=== PATIENT | female | born 1980 | race Caucasian/White ===

== ENCOUNTER 2022-12-11 15:15 | Outpatient (CLI) | payer BC, SELFPAY ==
--- NOTE | 2022-12-11 15:20 | CRLHL7_ITS ---
For Patients: As a result of the Century Cures Act, medical imaging exams and procedure reports are released immediately into your electronic medical record. You may view this report before your referring provider. If you have questions, please contact your health care provider. BILATERAL SCREENING MAMMOGRAM WITH COMPUTER-AIDED DETECTION TECHNIQUE: CC and MLO views were obtained. These mammographic images have been obtained using full-field digital technique. These mammographic images were interpreted with the benefit of computer-aided detection. COMPARISON FILM: 05/03/21. FINDINGS: There are scattered areas of fibroglandular density IMPRESSION: There is no radiographic evidence for malignancy. ASSESSMENT: BI-RADS Category 1: Negative RECOMMENDATION: Routine screening mammogram in 1 year. A lay language report of this examination will be provided to the patient. Maynor Prescott M.D. Diagnostic Radiologist [email or web address] DEVANTE/Dictated by: Maynor Prescott MD @ 12/12/2022 8:36:00 AM (Electronically Signed)
== END 2022-12-11 15:16 | disposition home or self-care (01) ==
LOC: MAMMO 15:16
PROVIDERS: PCP Family Medicine; Visit Provider Obstetrics & Gynecology
DX: Z12.31 Encounter for screening mammogram for malignant neoplasm of breast (principal)
CPT/HCPCS: 77067

== ENCOUNTER 2023-05-05 11:17 | Outpatient (CLI) | payer BC, SELFPAY ==
[2023-05-05 14:25] LABS: Strep A DNA Probe* NOT DETECTED (Not Detectd)
== END 2023-05-05 11:18 | disposition home or self-care (01) ==
LOC: KYNREF 11:18
PROVIDERS: PCP Family Medicine; Visit Provider Nurse Practitioner Family
DX: J02.9 Acute pharyngitis, unspecified (principal)
CPT/HCPCS: 87651

== ENCOUNTER 2023-10-14 14:27 | Outpatient (CLI) | payer BC, SELFPAY ==
--- OUTSIDE RECORDS SUMMARY | 2023-10-14 14:29 | XMS_ITS | Continuity of Care Document ---
Author Organization [facility] Address [address] [place] [address] Phone Care Team Providers Care Trash Collector Supervisor Name Role Phone Onelia French MD Unavailable Unavailable Allergies, Adverse Reactions, Alerts Substance Reaction Status Criticality No Known Allergies Active No Inform ation Medications Medication Instructions Dosage Effective Dates (start - stop) Status Comments CELEXA (unknown strength) Not Available - Active Procedures Procedure Date Office/Outpatient Visit,[facility] 2023 Advance Directives Directive Yes / No Effective Date File Name No Information Encounters Encounter Description Practice Location Reason(s) For Visit Diagnoses Date Provider Providers Copied on Encounter [facility], [address], [place], [place], [id number], [place] tel:[phone] [facility] No Information Gillian Rousseau. [facility] [place], [address] [place] [address] [address], [place], [place], [id number], [place]. tel:[phone] Office/Outpat ient Visit,[facility], [address], [place], [place], [id number], [place] tel:[phone] [facility] - [facility] Other spondylosis with radiculopathy , cervical region Gillian Rousseau. [facility] [place], [address] [place] [address], [place], [place], [id number], . tel:[phone] Referring Provider: [facility] [address] [facility] [address], [place], [address]. tel:[phone] Family History Family Member Type Diagnosis Age At Onset No Information Payers Payer name Insurance type Covered republican ID Pascual cespedes(s) [facility] [id number] Out Of State [id number] Social History Type Description Quantity Date Captured Comments Sex Female Smoking Status No Information Chief Complaint And Reason For Visit No Information Reason For Referral Reason For Referral No Information Plan Of Treatment Date Type Action Status Future Order: Radiology Order Ep idural Steroid Cervical/Thoracic - Nonparticulate (EPINonPartCervThor), Ordered on: Ordered History Of Present Illness Encounter Date Complaint History Of Prese nt Illness No Information Functional Status Date Functional Assessmen t No Information Instructions Date Instruction Additional Infor mation No Information Assessments Type Assessment Date No Information Patient Care Teams Name Effective Dates (start - stop) Status Members No Information
--- NOTE | 2023-10-14 14:30 | CRLHL7_ITS ---
For Patients: As a result of the Century Cures Act, medical imaging exams and procedure reports are released immediately into your electronic medical record. You may view this report before your referring provider. If you have questions, please contact your health care provider. CLINICAL HISTORY: Pelvic and perineal pain TECHNIQUE: 2D christy scale ultrasound. In addition color Doppler and spectral Doppler analysis was performed of the pelvis using a transabdominal and transvaginal approach. FINDINGS: The uterus is absent. The right ovary measures 2.5 x 1.9 x 1.6 cm in size and the left ovary measures 3.3 x 1.7 x 2.1 cm. The ovaries demonstrate normal arterial and venous blood flow on color Doppler and spectral Doppler analysis. There are no suspicious fluid collections within the cul-de-sac. IMPRESSION: Normal ovaries. No evidence of torsion. No excess pelvic free fluid or adnexal mass. Status post hysterectomy. Dictated by Maynor Prescott MD @ 10/15/2023 7:30:25 AM (Electronically Signed)
== END 2023-10-14 14:28 | disposition home or self-care (01) ==
LOC: US 14:28
PROVIDERS: PCP Family Medicine; Visit Provider Obstetrics & Gynecology
DX: R10.2 Pelvic and perineal pain (principal)
CPT/HCPCS: 76830; 76856; 93976

== ENCOUNTER 2024-02-17 14:45 | Outpatient (RCR) | payer BC, SELFPAY | END 2024-06-07 14:55 | disposition home or self-care (01) | PROVIDERS: PCP Family Medicine; Visit Provider Psychiatry & Neurology Neurology | DX: G54.0 Brachial plexus disorders (principal); G24.3 Spasmodic torticollis; M54.2 Cervicalgia; I87.1 Compression of vein; Z51.89 Encounter for other specified aftercare | CPT/HCPCS: 97110; 97140; 97163 ==

== ENCOUNTER 2024-09-21 08:48 | Outpatient (CLI) | payer BC, SELFPAY | END 2024-09-21 08:49 | disposition home or self-care (01) | LOC: NFLDREF 09-24 09:44 | PROVIDERS: PCP Family Medicine; Referring Provider Family Medicine; Visit Provider Family Medicine | DX: Z13.6 Encounter for screening for cardiovascular disorders (principal); Z13.9 Encounter for screening, unspecified | CPT/HCPCS: 80053; 80061 ==

== ENCOUNTER 2025-01-25 19:06 | Emergency (ER) | payer BC, SELFPAY ==
--- OUTSIDE RECORDS SUMMARY | 2024-12-31 11:30 | XMS_ITS | Encounter Summary ---
Author Organization [facility] Address [address] [place] [address] Care Team Providers Care Waste Water Operator Name Role Phone Noah Olguin MD Unavailable [phone] Evie Brooks MD Unavailable [phone] Joseluis Nagel MD Unavailable Evie Brooks MD Primary Care Provider + Noah Olguin MD Unavailable [phone] Reason for Visit * Reason Comments Procedure Here for injections, confirmed with patient * Clinically Administered Medications (Routine) - Authorized Specialty Diagnoses / Procedures Referred By Anderson dong Referred To Contact Neurology Diagnoses Cervical dystonia Procedures HRW INCOBOTULINUMTOXIN A, 1 UNIT 100 units every 3 months Noah Olguin MD [address] [place] [address] Phone: tel: fax: [facility] [address] [address] Phone: tel: fax: Referral ID Status Reason Start Date Expiration Date V isits Requested Visits Authorized [id number] Authorized 12/31/2024 04/06/2025 100 100 Encounter Details Date Type Department Care Team (Latest Contact Info) Description 12/31/2024 11:30 AM CDT Office Visit [facility] Neurology [address] [address] Noah Olguin MD [address] [id number] Cervical dystonia (Primary Dx); Contracture of sternocleidomastoid muscle Social History Tobacco Use Types Packs/Day Years Used Date Smoking Tobacco: Never Assessed PHQ-2 Answer Date Recorded PHQ-2 Score 0 09/24/2024 Adolescent Education Answer Date Record ed Getting School Help Needed Not on file 11/04 Interpersonal Safety Answer Date Record ed Do you feel physically and e motionally safe where you currently live? Yes 09/06/2024 Within the past 12 months, h ave you been hit, slapped, kicked or otherwise physically hurt by someone? No 09/06/2024 Within the past 12 months, h ave you been humiliated or emotionally abused in other ways by your partner or ex-partner? No 09/06/2024 Comments Unknown Sex and Gender Information Value Date Recorded Sex Assigned at Not on file Legal Sex Female 11:47 AM CDT Gender Identity Not on file Sexual Orientation Not on file documented as of this encounter Progress Notes * Noah Olguin MD - 12/31/2024 11:30 AM CDT PROCEDURE NOTE: Intramuscular Incobotulinum Toxin-A (Xeomin) Injection Under Ultrasound Guidance PROCEDURE DATE: 12/31/24 PATIENT NAME: Dorothy Moore DATE OF : 1980 ATTENDING PHYSICIAN: Noah Whalen Cha, MD PRIOR NEUROTOXIN 12-19-23 15 units per sternocleidomastoid muscle on the bilateral side(s) 02-05-24 venogram On the LEFT side 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 03-26-24 30 units per anterior scalene muscle on the LEFT side(s) only (Prior right TOS surgery 06-14-21) 30 units per sternocleidomastoid muscle on the bilateral side(s) divided to two spots of 15 units each. 09-06-24 Right Brachial Plexus Hydrodissection Under Ultrasound Guidance 6-20-25 20 units per anterior scalene muscle on the LEFT side(s) (20 total) 20 units per sternocleidomastoid muscle on the LEFT side (20 total) 10 unit per sternocleidomastoid muscle on the RIGHT side (10 total) 10 units per omohyoid muscle on the RIGHT side(s) (10 total) PREOPERATIVE DIAGNOSIS: 1. Cervical dystonia 2. Contracture of sternocleidomastoid muscle POSTOPERATIVE DIAGNOSIS: same PROCEDURE PERFORMED: Sternocleidomastoid, Anterior Scalene Muscle, Omohyoid Incobotulinum Toxin-A (Xeomin) Injection Under Ultrasound Guidance ULTRASOUND WAS USED. INDICATIONS FOR THE PROCEDURE: Dorothy Moore is a 44 year old female who presents with cervical dystonia. PROCEDURE AND FINDINGS: She was greeted in the clinic. The risk, benefits and alternatives to the procedure were again reviewed with her and informed consent was obtained and the patient agreed to proceed. A time-out was performed. Following review alternatives, benefits and risks, the procedure was carried out under sterile prep with sterile gel. The use of direct sonographic guidance was used to ensure accurate placement of the needle (rather than non-guided injection) and required to minimize the risk of bleeding or injury to nearby neurovascular structures. Images were recorded and stored. A 15-6MHz ultrasound transducer was used to visualize the relevant structures and determine the optimal needle path for the procedure. A 27 gauge 1.5 inch needle was advanced utilizing an [id number] approach, under continuous ultrasound guidance to the sternocleidomastoid, anterior scalene muscle(s), and omohyoid muscles. The tip of the needle was visualized throughout the procedure. The remainder of the single-use vials were discarded. 100 units of incobotulinum toxin was diluted 50 units/mL of preservative free saline. The followingmuscles were injected: 20 units per anterior scalene muscle on the LEFT side(s) (20 total) 20 units per sternocleidomastoid muscle on the LEFT side (20 total) 20 unit per sternocleidomastoid muscle on the RIGHT side (10 total) 20 units per upper and lower belly omohyoid muscle on the LEFT side(s) (10 total)--divided evenly between the bellies 80 total units used. The remainder (20 units) of the single-use vials were discarded. She tolerated the procedure well, was discharged home in stable condition. Follow-up will be in clinic COMPLICATIONS: None COMMENTS: Has had continued arm tingling and numbness. Between the injections, acupuncture and the hydrodissection, she has felt better. But she is feeling worse in the last few weeks. She has not had dizziness or headaches. No nausea. documented in this encounter Nursing Notes * Taniya Norton - 12/31/2024 11:30 AM CDT Chief Complaint Patient presents with Procedure Here for injections, confirmed with patient Taniya Tidwell Lisa documented in this encounter Plan of Treatment Upcoming Encounters Date Type Department Care Team (Late st Contact Info) Description 04/08/2025 12:00 PM STAVE HEWER Office Visit [facility] [address]rd [place] [address] Noah Olguin MD [address] [place] [address] Pending Results Name Type Priority Associated Diagnoses Date /Time POC US GUIDANCE NEEDLE PLACEMENT Imaging Routine Cervical dystonia Contracture of sternocleidomastoid muscle 12/31/2024 12:32 PM CDT Scheduled Orders Name Type Priority Associated Diagnoses Orde r Schedule POC US GUIDANCE NEEDLE PLACEMENT Imaging Routine Cervical dystonia Contracture of sternocleidomastoid muscle Expected: 12/31/2024 (Approximate), Expires: 12/26/2025 US GUIDE FOR NEEDLE PLACEMENT Imaging Routine Cervical dystonia Contracture of sternocleidomastoid muscle Expected: 12/31/2024 (Approximate), Expires: 12/26/2025 [place] CHEMODENERVATION MUSCLE NECK UNILAT Procedures Routine Cervical dystonia Contracture of sternocleidomastoid muscle Expected: 12/31/2024 (Approximate), Expires: 12/26/2025 documented as of this encounter Visit Diagnoses Diagnosis Cervical dystonia- Primary 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 Torticollis, unspecified documented in this encounter Administered Medications Active Administered Medications - up to 3 most recent administrations Medication Order MAR Action Action Date Dose Rate Site incobotulinumtoxin A (XEOMIN) 100 units injection 100 Units 100 Units, Intramuscular, EVERY 3 MONTHS, First dose on Fri12/31/24 at 0000, For 4 dosesIndications:Cervical dystonia,Contracture of sternocleidomastoid muscle $Given by Other 12/31/2024 1:48 PM CDT 100 Units documented in this encounter Care Teams Waste Water Operator Relationship Specialty Start Date End Date Evie Brooks MD [facility] [address] [place] [address] PCP - General Family Medicine 10/17/23 Noah Olguin MD [address] [place] [address] Neurology 10/17/23 Evie Brooks MD [address] [address] Family Medicine 10/17/23 Joseluis Nagel MD [address] [place] [address] 10/17/23 Noah Olguin MD [address] [place] [address] Assigned Neuroscience Provider 11/28/23 documented as of this encounter
--- OUTSIDE RECORDS SUMMARY | 2024-12-31 12:35 | XMS_ITS | Encounter Summary ---
Author Organization [facility] Address [address] [place] [address]. [place] [address] Care Team Providers Care Choirmaster Name Role Phone Noah Olguin MD Unavailable [phone] Evie Brooks MD Unavailable [phone] Joseluis Nagel MD Unavailable Evie Brooks MD Primary Care Provider + Noah Olguin MD Unavailable [phone] Encounter Details Date Type Department Care Team (Latest Contact Info) Description 12/31/2024 12:35 PM CDT Ancillary Procedure [facility] [address] [place] [address] Noah Olguin MD 909 [facility] [address] [place] [address] Cervical dystonia; Contracture of sternocleidomastoid muscle Social History Tobacco [...] on file documented as of this encounter Plan of Treatment Upcoming Encounters Date Type Department Care Team (Late st Contact Info) Description 04/08/2025 12:00 PM COMPUTER INFORMATION SYSTEMS PROFESSOR Office Visit [facility] [address] [place] [phone] Noah Olguin MD [address] [place] [address] Pending Results Name Type Priority Associated Diagnoses Date /Time POC US GUIDANCE NEEDLE PLACEMENT Imaging Routine Cervical dystonia Contracture of sternocleidomastoid muscle 12/31/2024 12:32 PM CDT documented as of this encounter Visit Diagnoses Diagnosis Cervical dystonia 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 [address] [place] [address] Family Medicine 10/17/23 Joseluis Nagel MD [address] [place] [address] 10/17/23 Noah Olguin MD [address] [address] Assigned Neuroscience Provider 11/28/23 documented as of this encounter
--- OUTSIDE RECORDS SUMMARY | 2025-01-25 19:09 | XMS_ITS | Encounter Summary ---
Author Organization [facility] Address [address] [place] [address]. [place] [address] Care Team Providers Care Salesperson Sewing Machines Name Role Phone Noah Olguin MD Unavailable [phone] Evie Brooks MD Unavailable [phone] Joseluis Nagel MD Unavailable Evie Brooks MD Primary Care Provider + Noah Olguin MD Unavailable [phone] Encounter Details Date Type Department Care Team (Latest Contact Info) Description 12/31/2024 Travel Social History Tobacco Use Types Packs/Day Years [...] st Contact Info) Description 04/08/2025 12:00 PM POT WASHER Office Visit [facility] Neurology [facility] [address] [facility] 3rd [place] [phone] Noah Olguin MD [address] [place] [address] documented as of this encounter Visit Diagnoses Not on filedocumented in this encounter Care Teams Salesperson Sewing Machines Relationship Specialty Start Date End Date Evie Brooks MD [facility] [address] [place] [address] PCP - General Family Medicine 10/17/23 Noah Olguin MD [address] [place] [address] Neurology 10/17/23 Evie Brooks MD [facility] [address] [place] [address] Family Medicine 10/17/23 Joseluis Nagel MD [address] [place] [address] 10/17/23 Noah Olguin MD [address] [place] [address] Assigned Neuroscience Provider 11/28/23 documented as of this encounter
--- OUTSIDE RECORDS SUMMARY | 2025-01-25 19:09 | XMS_ITS | Encounter Summary ---
Author Organization [facility] Address [address] [place] [address] Care Team Providers Care Economics Instructor Name Role Phone Noah Olguin MD Unavailable [phone] Evie Brooks MD Unavailable [phone] Joseluis Nagel MD Unavailable Evie Brooks MD Primary Care Provider + Noah Olguin MD Unavailable [phone] Encounter Details Date Type Department Care Team (Late st Contact Info) Description 11/28/2023 MyC Medical Advice [facility] Neurology Clinic [address] [address] Noah Olguin MD [address] [place] [address] 295 [place], [place] [id number] Social History Tobacco Use Types Packs/Day Years Used Date Smoking Tobacco: Never Assessed PHQ-2 Answer Date Recorded PHQ-2 Score 0 11/05/2023 Adolescent Education Answer Date Record ed Getting School Help Needed Not on file 11/04 Comments Unknown Sex and Gender Information Value Date Recorded Sex Assigned at Not on file Legal Sex Female 11:47 AM CDT Gender Identity Not on file Sexual Orientation Not on file documented as of this encounter Plan of Treatment Upcoming Encounters Date Type Department Care Team (Late st Contact Info) Description 04/08/2025 12:00 PM UTILITY MECHANIC SUPERVISOR Office Visit [facility] Neurology [address] [phone] Noah Olguin MD [address] [address] documented as of this encounter Visit Diagnoses Not on filedocumented in this encounter Care Teams Economics Instructor Relationship Specialty Start Date End Date Evie Brooks MD [facility] [address] [place] [address] PCP - General Family Medicine 10/17/23 Noah Olguin MD [address] [place] [address] Neurology 10/17/23 Evie Brooks MD [facility] [address] [place] [address] Family Medicine 10/17/23 Joseluis Nagel MD [address] [place] [address] 10/17/23 Noah Olguin MD [address] [place] [address] Assigned Neuroscience Provider 11/28/23 documented as of this encounter
--- OUTSIDE RECORDS SUMMARY | 2025-01-25 19:09 | XMS_ITS | Encounter Summary ---
Author Organization [facility] Address [address] [place] [address] Care Team Providers Care Director Outcomes Name Role Phone Noah Olguin MD Unavailable [phone] Evie Brooks MD Unavailable [phone] Joseluis Nagel MD Unavailable Evie Brooks MD Primary Care Provider + Noah Olguin MD Unavailable [phone] Encounter Details Date Type Department Care Team (Late st Contact Info) Description 06/15/2024 MyC Medical Advice [facility] Neurology Clinic [address] [address] Noah Olguin MD [address] [place] [address] 295 [place], [place] [phone] Social History Tobacco Use Types Packs/Day Years [...] st Contact Info) Description 04/08/2025 12:00 PM MOBILE HEAVY EQUIPMENT MECHANIC Office Visit [facility] Neurology [address] [phone] Noah Olguin MD [address] [address] documented as of this encounter Visit Diagnoses Not on filedocumented in this encounter Care Teams Director Outcomes Relationship Specialty Start Date End Date Evie Brooks MD [facility] [address] [place] [address] PCP - General Family Medicine 10/17/23 Noah Olguin MD [address] [place] [address] Neurology 10/17/23 Evie Brooks MD [facility] [address] [place] [address] Family Medicine 10/17/23 Joseluis Nagel MD [address] [place] [address] 10/17/23 Noah Olguin MD [address] [place] [address] Assigned Neuroscience Provider 11/28/23 documented as of this encounter
--- OUTSIDE RECORDS SUMMARY | 2025-01-25 19:09 | XMS_ITS | Encounter Summary ---
Author Organization [facility] Address [address] [place] [address] Care Team Providers Care Pest Control Service Sales Agent Name Role Phone Noah Olguin MD Unavailable [phone] Evie Brooks MD Unavailable [phone] Joseluis Nagel MD Unavailable Evie Brooks MD Primary Care Provider + Noah Olguin MD Unavailable [phone] Encounter Details Date Type Department Care Team (Late st Contact Info) Description 08/12/2024 [facility] Medical Advice [facility] Neurology Clinic [address]rd [place] [address] Noah Olguin MD [address] [place] [address] 295 [place] [address] Social History Tobacco Use Types Packs/Day Years [...] on file documented as of this encounter Miscellaneous Notes * Telephone Encounter - Samantha Live RN - 08/18/2024 11:52 AM CDT Spoke to patient about scheduling 08/26 omohyoid injections. Patient is unavailable. She reports that she is having a hydrodissection with Dr. Cooper on 09/06. She is wondering if Dr. Olguin wants to stillproceed with these injections or would want to wait till after procedure is completed? * Telephone Encounter - Samantha Live RN - 08/17/2024 9:35 AM CDT LVM relaying below message. OK to place in hold on 08/26 at 12:30PM for Neurotoxin with Dr. Olguin. documented in this encounter Plan of Treatment Upcoming Encounters Date Type Department Care Team (Late st Contact Info) Description 04/08/2025 12:00 PM PAINTER INTERIOR FINISH Office Visit [facility] Neurology Clinic [address]rd [place] [phone] Noah Olguin MD [address] [place] [address] documented as of this encounter Visit Diagnoses Not on filedocumented in this encounter Care Teams Pest Control Service Sales Agent Relationship Specialty Start Date End Date Evie Brooks MD [address] [address] PCP - General Family Medicine 10/17/23 Noah Olguin MD [address] [place] [address] Neurology 10/17/23 Evie Brooks MD [address] [address] Family Medicine 10/17/23 Joseluis Nagel MD [address] [place] [address] 10/17/23 Noah Olguin MD 909 [facility] [address] [place] [address] Assigned Neuroscience Provider 11/28/23 documented as of this encounter
--- OUTSIDE RECORDS SUMMARY | 2025-01-25 19:09 | XMS_ITS | Encounter Summary ---
Author Organization [facility] Address [address] [place] [address] Care Team Providers Care Clinical Nurse Occupational Medicine Name Role Phone Noah Olguin MD Unavailable [phone] Evie Brooks MD Unavailable [phone] Joseluis Nagel MD Unavailable Evie Brooks MD Primary Care Provider + Noah Olguin MD Unavailable [phone] Encounter Details Date Type Department Care Team (Late st Contact Info) Description 02/16/2024 MyC Medical Advice [facility] Neurology Clinic [address] [address] Noah Olguin MD [address] [place] [address] 295 [place], [place] [phone] Social History Tobacco Use Types Packs/Day Years [...] st Contact Info) Description 04/08/2025 12:00 PM FOLDING MACHINE OPERATOR Office Visit [facility] Neurology [address] [phone] Noah Olguin MD [address] [address] documented as of this encounter Visit Diagnoses Not on filedocumented in this encounter Care Teams Clinical Nurse Occupational Medicine Relationship Specialty Start Date End Date Evie Brooks MD [facility] [address] [place] [address] PCP - General Family Medicine 10/17/23 Noah Olguin MD [address] [place] [address] Neurology 10/17/23 Evie Brooks MD [facility] [address] [place] [address] Family Medicine 10/17/23 Joseluis Nagel MD [address] [place] [address] 10/17/23 Noah Olguin MD [address] [place] [address] Assigned Neuroscience Provider 11/28/23 documented as of this encounter
--- OUTSIDE RECORDS SUMMARY | 2025-01-25 19:09 | XMS_ITS | Encounter Summary ---
Author Organization [facility] Address [address] [place] [address]. [place] [address] Care Team Providers Care Supervisor Natural [employer] Plant Name Role Phone Noah Olguin MD Unavailable [phone] Evie Brooks MD Unavailable [phone] Joseluis Nagel MD Unavailable Evie Brooks MD Primary Care Provider + Noah Olguin MD Unavailable [phone] Encounter Details Date Type Department Care Team (Late st Contact Info) Description 12/20/2024 Telephone [facility] Clinic [address] [place] [address] Noah Olguin MD [address] [place] [address] [address] [place] [address] Social History Tobacco Use Types [...] encounter Miscellaneous Notes * Telephone Encounter - Sirena Ocampo - 12/20/2024 8:08 AM CDT Left Voicemail (2nd Attempt) for the patient to call back and schedule the following: Appointment type: Neurotoxin Provider: Clau Return date: 12/31/24 Specialty phone number: [phone] Additional appointment(s) needed: NA Additonal Notes:per provider-- is pt available to change her appt from 12:30pm to 11:30am(open slot) Sirena Krista Ocampo on 12/20/2024 at 8:08 AM documented in this encounter Plan of Treatment Upcoming Encounters Date Type Department Care Team (Late st Contact Info) Description 04/08/2025 12:00 PM HOOKER OPERATOR Office Visit [facility] Neurology [facility] [address] 3rd [place] [phone] Noah Olguin MD [address] [place] [address] documented as of this encounter Visit Diagnoses Not on filedocumented in this encounter Care Teams Supervisor Natural Gas Plant Relationship Specialty Start Date End Date Evie Brooks MD [address] [address] PCP - General Family Medicine 10/17/23 Noah Olguin MD [address] [place] [address] Neurology 10/17/23 Evie Brooks MD [facility] [address] [place] [address] Family Medicine 10/17/23 Joseluis Nagel MD [address] [place] [address] 10/17/23 Noah Olguin MD 909 [facility] [address] [place] [address] Assigned Neuroscience Provider 11/28/23 documented as of this encounter
--- OUTSIDE RECORDS SUMMARY | 2025-01-25 19:09 | XMS_ITS | Clinical Summary ---
Author Organization [facility] Address [address] [place] [address] Care Team Providers Care Barytes Grinder Name Role Phone Pcp, No Unavailable Unavailable Evie Brooks MD Unavailable [phone] Evie Brooks MD Primary Care Provider + Allergies No known active allergies Medications multivitamin (MVI) tablet Take 1 Tablet by mouth once daily. 0 11/15/2020 Active citalopram (CELEXA) 10 mg tablet Take 30 mg by mouth at bedtime. Active gabapentin (NEURONTIN) 300 mg capsule Take 300 mg by mouth at bedtime. Active furosemide (LASIX) 20 mg tablet Take 20 mg by mouth once daily. Active minocycline (MINOCIN) 100 mg capsule Take 100 mg by mouth every 12 hours. Active Active Problems Problem Noted Date Diagnosed Date Thoracic outlet syndrome 06/14/2021 Anxiety 06/14/2021 Acute postoperative pain 06/14/2021 Cervical Disk Bulging 04/13/2009 Seasonal allergies 02/02/2009 Encounters Date Type Department Care Team Description 12/09/2024 Telephone Identiv [facility] [address] [place] [address] Joseluis Nagel MD Follow Up from Last 3 Months Immunizations Immunization Administration Dates Next Due Hepatitis B (Adult) 02/18/2017 Influenza, IIV3 (Age 6-35 mos) 01/17/2020 Influenza, IIV3 (Age >=3 years) 12/26/2010 Influenza, IIV4 01/11/2019,01/01/2018,01/25/2015 Influenza, IIV4 (=>6mos) MDV 01/08/2017,01/24/20 16 Influenza,LAIV4 Live Intrana celia (Flumist) 01/12/2014 Td, Preservative Free (age > = 7 Years) 10/04/2008 Tdap 11/13/2017, 6,02/02/2009,2008 Family History Medical History Relation Name Comments Other Brother 2 had cystic fibr osis, age 11 with complications, and also an unusual cancer Good Health Father of drownin g Unknown Maternal Grandfather Cancer Maternal Grandmother liver C a Good Health Mother Heart Disease Paternal Grandfather Hyperlipidemia Paternal Grandfather Good Health Paternal Grandmother Anesthesia Problem No Family History Relation Name Status Comments Brother 1 (Age 11) CF Brother 2 Father drowning Maternal Grandfather Maternal Grandmother Mother Paternal Grandfather Paternal Grandmother Social History Tobacco Use Types Packs/Day Years Used Date Smoking Tobacco: Never Smokeless Tobacco: Never Alcohol Use Standard Drinks/Week Comments Yes 0 (1 standard drink = 0.6 oz pur e alcohol) socially; updated 08/02/2024 Social Connections Answer Date Recorded Do you often feel lonely or isolated from those around you? 0 02/02/2024 Financial Resource Strain Answer Date R ecorded Difficulty of Paying Living Expenses 3 05/04/2024 Difficulty of Paying Living Expenses Not on file 05/04/2024 Food Insecurity Answer Date Recorded Do you worry your food will run out before you are able to buy more? 1 02/02/2024 Transportation Needs Answer Date Record ed Does lack of transportation keep you from medica l appointments? 1 02/02/2024 Does lack of transportation keep you from work, meetings or getting things that you need? 1 02/02/2024 Housing Stability Answer Date Recorded What is your housing situation today? 1 02/02/2024 Interpersonal Safety Answer Date Record ed Are you being hit, kicked, p ushed or yelled at (see row info)? No 02/05/2024 Interpersonal Safety Abuse 12 - 18 Not on file 02/05/2024 Interpersonal Safety Ambulatory Vulnerability No t on file 02/05/2024 Utilities Answer Date Recorded Do you have trouble paying f or utilities (for example, heat, electricity, water, phone)? 1 02/02/2024 Comments No Sex and Gender Information Value Date Recorded Sex Assigned at Not on file Legal Sex Female 3:47 PM SCHOOL ATHLETIC DIRECTOR Gender Identity Not on file Sexual Orientation Not on file Occupation Industry Job Start Date Job End Date Not on file Not on file Not on file Not on file Obstetrics History Last Filed Vital Signs Vital Sign Reading Time Taken Comments Blood Pressure 110/68 08/02/2024 9:12 AM CDT Pulse 67 08/02/2024 9:12 AM CDT Temperature 36.1 C (97 F) 02/05/2024 3:00 PM CDT Respiratory Rate 16 08/02/2024 9:12 AM CDT Oxygen Saturation 96% 08/02/2024 9:12 AM CDT Inhaled Oxygen Concentration - - Weight 91.6 kg (202 lb) 02/05/2024 12:53 PM CDT Height 172.7 cm (5' 8) 02/05/2024 12:53 PM CDT Body Mass Index 30.71 02/05/2024 12:53 PM CDT Plan of Treatment Health Maintenance Due Date Last Done Comments Depression screening for age 12+ 1992 HIV for age 15-65 12/08/1995 Hepatitis C screening for age 18-79 1998 HPV series for age 9-45 (1 - 3-dose SCDM series) 12/08/2007 Hepatitis B series for 19+ (2 of 3 - 19+ 3-dose series) 03/18/2017 02/18/2017 BMI (ht and wt on same day) for age 18+ 03/07/2022 03/07/2021, 11/15/2020 Pap test for age 21-65 11/25/2022 0, 11/26/2019, 02/19/2018, Additional history exists Influenza Vaccine (#1) 2024 0, 01/11/2019, 01/01/2018, Additional history exists Tetanus booster 11/14/2027 11/13/2017, 05/0 05/2015, 02/02/2009, Additional history exists RSV vaccine for adults or (1 - 1-dose 75+ series) 12/08/2055 COVID-19 vaccine series Completed 01/26/20 24, 03/17/2023, 02/14/2022, Additional history exists Pneumococcal series for age 6-49 Aged Out No longer eligible based on patient's age to complete this topic Procedures Procedure Name Priority Date/Time Associated Diagnosis Comments WILD LIFE MANAGER THIN PREP PAP SCREEN IMAGED Routine 11/26/2019 2:30 PM CDT from Last 3 Months or Most Recently Relevant to Health Maintenance Results * WILD LIFE MANAGER THIN PREP PAP SCREEN IMAGED (11/26/2019 2:30 PM CDT) Case Report Gynecologic Cytology Report Case: [id number] Authorizing Provider: Aggie Wells Collected: 11/26/2019 Maliha Quan MD Ordering Location: [facility] Received: 11/30/2019 1022 First Screen: Nancy Sweet Rescreen: Celeste Miller Pathologist: Francis Molina Jr., MD Specimen: WILD LIFE MANAGER ThinPrep Vial Screening, Cervical/Vaginal 12/10/2019 3:51 PM CDT [facility] INTERPRETATION/ RESULT NEGATIVE FOR INTRAEPITHELIAL LESION OR MALIGNANCY (NIL) (none) 12/10/2019 3:51 PM CDT [facility] at 1551 CDT OTHER NON-NEOPLASTIC FINDING(S) Reactive cellular changes associated with inflammation/repa ir 12/10/2019 3:51 PM CDT [facility] ORGANISM(S) Shift in ryan suggestive of bacterial vaginosis 12/10/2019 3:51 PM CDT [facility] SPECIMEN ADEQUACY Satisfactory for evaluation Endocervical component present 12/10/2019 3:51 PM CDT [facility] HPV REQUEST HPV and PAP 12/10/2019 3:51 PM CDT [facility] Date of LMP 11/02/2019 12/10/2019 3:51 PM CDT [facility] Last Pap Date 02/19/2018 12/10/2019 3:51 PM CDT [facility] Last Pap Result [facility] 0 3:51 PM CDT [facility] Comment:-HPV Additional Information 12/10/2019 3:51 PM CDT [facility] Comment: Interpreted at [facility] - [address], [place] [address] Automated Review Successful 12/10/2019 3:51 PM CDT [facility] Comment:Specimen processed s uccessfully by automated controls project engineer device, ThinPrep Imaging System, [employer] ANCILLARY TESTING WILD LIFE MANAGER HPV Ordered, Please see separate report 12/10/2019 3:51 PM CDT [facility] Note The pap test is a screening technique, not a diagnostic procedure. It is used primarily to screen for squamous cancers and precursor lesions. Published studies have shown that it is subject to both false negative and false positive results. The pap test should not be used as the sole means to diagnose or exclude pre-malignant and malignant lesions. 12/10/2019 3:51 PM CDT [facility] Other (Cervical/Vagina l) 11/26/2019 2:30 PM CDT 11/30/2019 10:22 AM CDT Aggie Wells MD PATHOLOGY/CYTOLOGY Final Result [facility] [address] [place] [address], [place] from Last 3 Months or Most Recently Relevant to Health Maintenance [place] [address] [place] [id number] [employer] MANDEEP WARREN [id number] Advance Directives * Full Code (Latest Code Status on File) Date Activated Date Inactivated Comments 06/14/2021 6:13 AM 06/18/2021 2:17 PM Question Answer Comments Code Status Discussion: Unable to Assess Preferences, Provider to review later Care Teams Barytes Grinder Relationship Specialty Start Date End Date Evie Brooks MD [address] [place] [address] PCP - General Family Practice 05/21/23 Pcp, No . 11/15/20 Evie Brooks MD [address] [place] [address] Family Practice 06/14/21
--- OUTSIDE RECORDS SUMMARY | 2025-01-25 19:09 | XMS_ITS | Encounter Summary ---
Author Organization [facility] Address [address] [place] [address] Care Team Providers Care Senior Cost Analyst Name Role Phone Noah Olguin MD Unavailable [phone] Evie Brooks MD Unavailable [phone] Joseluis Nagel MD Unavailable Evie Brooks MD Primary Care Provider + Noah Olguin MD Unavailable [phone] Encounter Details Date Type Department Care Team (Late st Contact Info) Description 07/04/2024 MyC Medical Advice [facility] Neurology Clinic [address] [address] Noah Olguin MD [address] [place] [address] [address] [place] [address] Social History Tobacco Use Types [...] st Contact Info) Description 04/08/2025 12:00 PM BIZTALK ADMINISTRATOR Office Visit [facility] Neurology [address] [phone] Noah Olguin MD [address] [address] documented as of this encounter Visit Diagnoses Not on filedocumented in this encounter Care Teams Senior Cost Analyst Relationship Specialty Start Date End Date Evie Brooks MD [facility] [address] [place] [address] PCP - General Family Medicine 10/17/23 Noah Olguin MD [address] [place] [address] Neurology 10/17/23 Evie Brooks MD [facility] [address] [place] [address] Family Medicine 10/17/23 Joseluis Nagel MD [address] [place] [address] 10/17/23 Noah Olguin MD [address] [place] [address] Assigned Neuroscience Provider 11/28/23 documented as of this encounter
--- OUTSIDE RECORDS SUMMARY | 2025-01-25 19:09 | XMS_ITS | Encounter Summary ---
Author Organization [facility] Address [address] [place] [address] Care Team Providers Care Plant Tech Name Role Phone Noah Olguin MD Unavailable [phone] Evie Brooks MD Unavailable [phone] Joseluis Nagel MD Unavailable Evie Brooks MD Primary Care Provider + Noah Olguin MD Unavailable [phone] Encounter Details Date Type Department Care Team (Late st Contact Info) Description 11/10/2023 MyC Medical Advice [facility] Neurology [address] [address] Dora Cummins, RN Social History Tobacco Use Types Packs/Day Years [...] st Contact Info) Description 04/08/2025 12:00 PM J2EE JAVA DEVELOPER Office Visit [facility] Neurology [address] [address] Noah Olguin MD [address] [address] documented as of this encounter Visit Diagnoses Not on filedocumented in this encounter Care Teams Plant Tech Relationship Specialty Start Date End Date Evie Brooks MD [facility] [address] [place] [address] PCP - General Family Medicine 10/17/23 Noah Olguin MD [address] [place] [address] Neurology 10/17/23 Evie Brooks MD [facility] [address] [place] [address] Family Medicine 10/17/23 Joseluis Nagel MD [address] [place] [address] 10/17/23 Noah Olguin MD [address] [place] [address] Assigned Neuroscience Provider 11/28/23 documented as of this encounter
--- OUTSIDE RECORDS SUMMARY | 2025-01-25 19:09 | XMS_ITS | Encounter Summary ---
Author Organization [facility] Address [address] [place] [address] Care Team Providers Care Elevator Repairer Apprentice Name Role Phone Noah Olguin MD Unavailable [phone] Evie Brooks MD Unavailable [phone] Joseluis Nagel MD Unavailable Evie Brooks MD Primary Care Provider + Noah Olguin MD Unavailable [phone] Encounter Details Date Type Department Care Team (Late st Contact Info) Description 11/07/2023 [facility] Medical Advice [facility] [address] [address] Samantha Live RN Social History Tobacco Use Types Packs/Day [...] Telephone Encounter - Samantha Live RN - 11/13/2023 3:57 PM CDT PT referral faxed to [facility] # documented in this encounter Plan of Treatment Upcoming Encounters Date Type Department Care Team (Late st Contact Info) Description 04/08/2025 12:00 PM FACILITIES PROJECT MANAGER Office Visit [facility] [address] 3rd [place] [phone] Noah Olguin MD [address] [place] [address] documented as of this encounter Visit Diagnoses Not on filedocumented in this encounter Care Teams Elevator Repairer Apprentice Relationship Specialty Start Date End Date Evie Brooks MD [address] [address] PCP - General Family Medicine 10/17/23 Noah Olguin MD [address] [place] [address] Neurology 10/17/23 Evie Brooks MD [address] [address] Family Medicine 10/17/23 Joseluis Nagel MD [address] [place] [address] 10/17/23 Noah Olguin MD [address] [place] [address] Assigned Neuroscience Provider 11/28/23 documented as of this encounter
--- OUTSIDE RECORDS SUMMARY | 2025-01-25 19:09 | XMS_ITS | Encounter Summary ---
Author Organization [facility] Address [address] [place] [address]. [place] [address] Care Team Providers Care Waterproofing Supervisor Name Role Phone Noah Olguin MD Unavailable [phone] Evie Brooks MD Unavailable [phone] Joseluis Nagel MD Unavailable Evie Brooks MD Primary Care Provider + Noah Olguin MD Unavailable [phone] Reason for Visit * Reason Onset Date Comments Skin Discoloration 01/25/2025 Encounter Details Date Type Department Care Team (Late st Contact Info) Description 01/25/2025 Telephone [facility] Nurse Advisors [address] [place] [address] Paula Araya RN Skin Discoloration Social History Tobacco Use Types Packs/Day Years [...] encounter Miscellaneous Notes * Telephone Encounter - Paula Araya RN - 01/25/2025 5:59 PM CDT Pt is calling to report that both her hands and fingers are turning blue, purple - worse on the right. No pain in affected area but reports a tightnening in her right arm. This started around 3pm and has continued. She also feels nausea and has vertigo. On and off palpitations and double breathe at times. She's most concerned about her hands. She has a history of thoracic outlet syndrome. Patient decided during the call to contact her neurosurgeon from [facility] to get further recommendations as she thinks it may be due to her condition. She will call back if no response from neurosurgeon. Paula Araya RN, BSN Nurse Triage Advisor 01/25/2025 6:15 PM documented in this encounter Plan of Treatment Upcoming Encounters Date Type Department Care Team (Late st Contact Info) Description 04/08/2025 12:00 PM FIRE SPRINKLER APPARATUS INSPECTOR Office Visit [facility] Neurology Clinic [address] [place] [address] Noah Olguin MD [address] [place] [id number] documented as of this encounter Visit Diagnoses Not on filedocumented in this encounter Care Teams Waterproofing Supervisor Relationship Specialty Start Date End Date Evie Brooks MD [facility] [address] [address] PCP - General Family Medicine 10/17/23 Noah Olguin MD [address] [place] [address] Neurology 10/17/23 Evie Brooks MD [facility] [address] [place] [address] Family Medicine 10/17/23 Joseluis Nagel MD [address] [place] [address] 10/17/23 Noah Olguin MD 909 [facility] [address] [place], [place] [address] Assigned Neuroscience Provider 11/28/23 documented as of this encounter
--- OUTSIDE RECORDS SUMMARY | 2025-01-25 19:09 | XMS_ITS | Encounter Summary ---
Author Organization [facility] Address [address] [place] [address] Care Team Providers Care Genetic Physician Name Role Phone Noah Olguin MD Unavailable [phone] Evie Brooks MD Unavailable [phone] Joseluis Nagle MD Unavailable Evie Brooks MD Primary Care Provider + Noah Olguin MD Unavailable [phone] Encounter Details Date Type Department Care Team (Late st Contact Info) Description 01/20/2024 MyC Medical Advice [facility] [address] [address] Noah Olguin MD [address] [place] [address] [address] [place], [place] [id number] Social History Tobacco Use Types Packs/Day Years [...] st Contact Info) Description 04/08/2025 12:00 PM SALES AND MERCHANDISING REPRESENTATIVE Office Visit [facility] Neurology [address] [phone] Noah Olguin MD [address] [address] documented as of this encounter Visit Diagnoses Not on filedocumented in this encounter Care Teams Genetic Physician Relationship Specialty Start Date End Date Evie Brooks MD [facility] [address] [place] [address] PCP - General Family Medicine 10/17/23 Noah Olguin MD [address] [place] [address] Neurology 10/17/23 Evie Brooks MD [facility] [address] [place] [address] Family Medicine 10/17/23 Joseluis Nagel MD [address] [place] [address] 10/17/23 Noah Olguin MD [address] [place] [address] Assigned Neuroscience Provider 11/28/23 documented as of this encounter
--- OUTSIDE RECORDS SUMMARY | 2025-01-25 19:09 | XMS_ITS | Encounter Summary ---
Author Organization [facility] Address [address] [place] [address] Care Team Providers Care Social Worker School Name Role Phone Noah Olguin MD Unavailable [phone] Evie Brooks MD Unavailable [phone] Joseluis Nagel MD Unavailable Evie Brooks MD Primary Care Provider + Noah Olguin MD Unavailable [phone] Encounter Details Date Type Department Care Team (Late st Contact Info) Description 05/18/2024 MyC Medical Advice [facility] Neurology Clinic [address] [address] Noah Olguin MD [address] [place] [address] [address] [place], [place] [phone] Social History Tobacco Use Types Packs/Day Years [...] st Contact Info) Description 04/08/2025 12:00 PM UNIT COORDINATOR Office Visit [facility] Neurology [address] [phone] Noah Olguin MD [address] [address] documented as of this encounter Visit Diagnoses Not on filedocumented in this encounter Care Teams Social Worker School Relationship Specialty Start Date End Date Evie Brooks MD [facility] [address] [place] [address] PCP - General Family Medicine 10/17/23 Noah Olguin MD [address] [place] [address] Neurology 10/17/23 Evie Brooks MD [facility] [address] [place] [address] Family Medicine 10/17/23 Joseluis Nagel MD [address] [place] [address] 10/17/23 Noah Olguin MD [address] [place] [address] Assigned Neuroscience Provider 11/28/23 documented as of this encounter
--- OUTSIDE RECORDS SUMMARY | 2025-01-25 19:09 | XMS_ITS | Encounter Summary ---
Author Organization [facility] Address [address] [place] [address] Care Team Providers Care Inspection Machine Tender Name Role Phone Noah Olguin MD Unavailable [phone] Evie Brooks MD Unavailable [phone] Joseluis Nagel MD Unavailable Evie Brooks MD Primary Care Provider + Noah Olguin MD Unavailable [phone] Encounter Details Date Type Department Care Team (Late st Contact Info) Description 11/21/2023 MyC Medical Advice [facility] Audiology [address] [place] [address] Bebe Sanchez, AuD [address] [place] [address] Social History Tobacco Use Types Packs/Day Years [...] st Contact Info) Description 04/08/2025 12:00 PM MANAGER PRIVATE Office Visit [facility] Neurology Clinic [address] [place] [phone] Noah Olguin MD [address] [address] documented as of this encounter Visit Diagnoses Not on filedocumented in this encounter Care Teams Inspection Machine Tender Relationship Specialty Start Date End Date Evie Brooks MD [facility] [address] [place] [address] PCP - General Family Medicine 10/17/23 Noah Olguin MD [address] [place] [address] Neurology 10/17/23 Evie Brooks MD [facility] [address] [place] [address] Family Medicine 10/17/23 Joseluis Nagel MD [address] [place] [address] [place] [address] 10/17/23 Noah Olguin MD [address] [place] [address] Assigned Neuroscience Provider 11/28/23 documented as of this encounter
--- OUTSIDE RECORDS SUMMARY | 2025-01-25 19:09 | XMS_ITS | Encounter Summary ---
Author Organization [facility] Address [address] [place] [address]. [place] [address] Care Team Providers Care Hazardous Materials Handler Name Role Phone Noah Olguin MD Unavailable [phone] Evie Brooks MD Unavailable [phone] Joseluis Nagel MD Unavailable Evie Brooks MD Primary Care Provider + Noah Olguin MD Unavailable [phone] Encounter Details Date Type Department Care Team (Late st Contact Info) Description 12/16/2024 Telephone [facility] [address] [place] [address] Noah Olguin MD [address] [place] [address] [address] [place] [address] Social History Tobacco Use Types [...] encounter Miscellaneous Notes * Telephone Encounter - DamarisSirena quevedo - 12/16/2024 10:51 AM CDT Left Voicemail (1st Attempt) and Sent Mychart (1st Attempt) for the patient to call back and schedule the following: Appointment type: Neurotoxin Provider: Clau Return date: 12/31/24 Specialty phone number: [phone] Additional appointment(s) needed: NA Additonal Notes:per provider-- is pt available to change her appt from 12:30pm to 11:30am(open slot) Sirena Ocampo on 12/16/2024 at 10:52 AM documented in this encounter Plan of Treatment Upcoming Encounters Date Type Department Care Team (Late st Contact Info) Description 04/08/2025 12:00 PM BROTH SETTER Office Visit [facility] [address] [place] [phone] Noah Olguin MD [address] [place] [address] documented as of this encounter Visit Diagnoses Not on filedocumented in this encounter Care Teams Hazardous Materials Handler Relationship Specialty Start Date End Date Evie Brooks MD [facility] [address] [place] [address] PCP - General Family Medicine 10/17/23 Noah Olguin MD [address] [place] [address] Neurology 10/17/23 Evie Brooks MD [facility] [address] [place] [address] Family Medicine 10/17/23 Joseluis Nagel MD [address] [place] [address] 10/17/23 Noah Olguin MD [address] [facility] [address] [place] [address] Assigned Neuroscience Provider 11/28/23 documented as of this encounter
--- OUTSIDE RECORDS SUMMARY | 2025-01-25 19:09 | XMS_ITS | Encounter Summary ---
Author Organization [facility] Address [address] [place] [address]. [place] [address] Care Team Providers Care On Site Wastewater Systems Technician Name Role Phone Noah Olguin MD Unavailable [phone] Evie Brooks MD Unavailable [phone] Joseluis Nagel MD Unavailable Evie Brooks MD Primary Care Provider + Noah Olguin MD Unavailable [phone] Encounter Details Date Type Department Care Team (Late st Contact Info) Description 12/22/2024 Telephone [facility] [address] [place] [address] Noah Olguin MD [address] [place] [address] [address] [place] [address] Social History Tobacco Use Types [...] * Telephone Encounter - Sirena Ocampo - 12/22/2024 11:09 AM CDT Left Voicemail-3rd attempt for the patient to call back and schedule the following: Appointment type: Neurotoxin Provider: Clau Return date: 12/31/24 Specialty phone number: [phone] Additional appointment(s) needed: NA Additonal Notes:per provider-- is pt available to change her appt from 12:30pm to 11:30am(open slot) Appointment will need to be manually scheduled Sirena Velasco Damaris on 12/22/2024 at 11:11 AM documented in this encounter Plan of Treatment Upcoming Encounters Date Type Department Care Team (Late st Contact Info) Description 04/08/2025 12:00 PM TRANSISTOR TESTER Office Visit [facility] [address] [phone] Noah Olguin MD [address] [place] [address] documented as of this encounter Visit Diagnoses Not on filedocumented in this encounter Care Teams On Site Wastewater Systems Technician Relationship Specialty Start Date End Date Evie Brooks MD [facility] [address] [place] [address] PCP - General Family Medicine 10/17/23 Noah Olguin MD [address] [place] [address] Neurology 10/17/23 Evie Brooks MD [facility] [address] [place] [address] Family Medicine 10/17/23 Joseluis Nagel MD [address], [place] [address] 10/17/23 Noah Olguin MD [address]09 [facility] [address] [place] [address] Assigned Neuroscience Provider 11/28/23 documented as of this encounter
--- OUTSIDE RECORDS SUMMARY | 2025-01-25 19:09 | XMS_ITS | Encounter Summary ---
Author Organization [facility] Address [address] [place] [address]. [place] [address] Care Team Providers Care Fibrous Wallboard Inspector Name Role Phone Noah Olguin MD Unavailable [phone] Evie Brooks MD Unavailable [phone] Joseluis Nagel MD Unavailable Eive Brooks MD Primary Care Provider + Noah Olguin MD Unavailable [phone] Encounter Details Date Type Department Care Team (Late st Contact Info) Description 12/16/2024 [facility] [address] [place] [address] [employer] Social History Tobacco Use Types Packs/Day Years [...] st Contact Info) Description 04/08/2025 12:00 PM SUPERVISOR WEBBING Office Visit [facility] [address] [place] [phone] Noah Olguin MD [address] [place] [address] documented as of this encounter Visit Diagnoses Not on filedocumented in this encounter Care Teams Fibrous Wallboard Inspector Relationship Specialty Start Date End Date Evie Brooks MD [address] [address] PCP - General Family Medicine 10/17/23 Noah Olguin MD [address] [place] [address] Neurology 10/17/23 Evie Brooks MD [address] [address] Family Medicine 10/17/23 Joseluis Nagel MD [address] [place] [address] 10/17/23 Noah Olguin MD [address] [place] [address] Assigned Neuroscience Provider 11/28/23 documented as of this encounter
--- OUTSIDE RECORDS SUMMARY | 2025-01-25 19:09 | XMS_ITS | Encounter Summary ---
Author Organization [facility] Address [address] [place] [address] Care Team Providers Care Edge Brusher Name Role Phone Noah Olguin MD Unavailable [phone] Evie Brooks MD Unavailable [phone] Joseluis Nagel MD Unavailable Evie Brooks MD Primary Care Provider + Noah Olguin MD Unavailable [phone] Encounter Details Date Type Department Care Team (Late st Contact Info) Description 12/12/2023 [facility] Medical Advice [facility] [address] [place] [address] Samantha Live RN Social History Tobacco [...] Telephone Encounter - Samantha Live RN - 12/12/2023 1:07 PM CDT LVM to move neurotoxin injection appt from 8:30AM to 9:00AM on 12/18. OK to move if patient calls back, spot on hold. documented in this encounter Plan of Treatment Upcoming Encounters Date Type Department Care Team (Late st Contact Info) Description 04/08/2025 12:00 PM PAPER CUTTER Office Visit [facility] [address] [place] [address] Noah Olguin MD [address] [place] [address] documented as of this encounter Visit Diagnoses Not on filedocumented in this encounter Care Teams Edge Brusher Relationship Specialty Start Date End Date Evie Brooks MD [address] [address] PCP - General Family Medicine 10/17/23 Noah Olguin MD [address] [place] [address] Neurology 10/17/23 Evie Brooks MD [address] [address] Family Medicine 10/17/23 Joseluis Nagel MD [address] [place] [address] 10/17/23 Noah Olguin MD [address] [place] [address] Assigned Neuroscience Provider 11/28/23 documented as of this encounter
--- OUTSIDE RECORDS SUMMARY | 2025-01-25 19:09 | XMS_ITS | Clinical Summary ---
Author Organization [facility] Address [address] [place] [address] Care Team Providers Care Independent Driver Name Role Phone Noah Olguin MD Unavailable [phone] Evie Brooks MD Unavailable [phone] Joseluis Nagel MD Unavailable Evie Brooks MD Primary Care Provider + Noah Olguin MD Unavailable [phone] Allergies No known active allergies Medications citalopram (CELEXA) 10 MG tablet TAKE 1 TABLET BY MOUTH ONCE DAILY. TAKE WITH 20MG TABLET.DAILY DOSE: 30MG/DAY Active citalopram (CELEXA) 20 MG tablet TAKE 1 TABLET BY MOUTH ONCE DAILY.TAKE ALONG WITH 10MG TAB. DAILY DOSE: 30MG/DAY Active gabapentin (NEURONTIN) 300 MG capsule Take 300 mg by mouth at bedtime Active clobetasol propionate (TEMOVATE) 0.05 % external cream PLEASE SEE ATTACHED FOR DETAILED DIRECTIONS 4 Active triamcinolone (KENALOG) 0.1 % external cream APPLY TO AFFECTED AREAS ON BODY 2X DAILY FOR 2 WEEKS. TAKE 2 WEEKS OFF. REPEAT NEEDED. 4 Active ondansetron (ZOFRAN ODT) 4 MG ODT tabIndications: Nausea Take 1 tablet (4 mg) by mouth every 8 hours as needed for nausea. 20 tablet 3 5 Active furosemide (LASIX) 20 MG tabletIndicatio ns:Local edema Take 1 tablet (20 mg) by mouth daily. 60 tablet 3 Active Hospital, Clinic, or Other Facility Administered Medication Ordered Dose Route Frequency Start Date End Date Status incobotulinumtoxin A (XEOMIN) 100 units injection 100 UnitsIndications:Cervical dystonia,Contracture of sternocleidomastoid muscle 100 Units IM EVERY 3 MONTHS 12/31/2024 Active Active Problems Problem Noted Date Diagnosed Date TOS (thoracic outlet syndrome) 08/11/2024 Encounters Date Type Department Care Team Description 01/25/2025 Telephone [facility] [place] [phone] Paula Araya RN Skin Discoloration 12/31/2024 12:35 PM CDT Ancillary Procedure formerly [facility] [address] [place] [phone] Noah Olguin MD Cervical dystonia; Contracture of sternocleidomastoid muscle 12/31/2024 11:30 AM CDT Office Visit [facility] [address] [phone] Noah Olguin MD Cervical dystonia (Primary Dx); Contracture of sternocleidomastoid muscle 12/31/2024 Travel 12/22/2024 Telephone [facility] Neurology [address] [address] Noah Olguin MD 12/20/2024 Telephone [facility] Neu[facility] [address] [address] Noah Olguin MD 12/16/2024 MyC Medical Advice [facility] Neurology [address] [address] [facility] 12/16/2024 Telephone [facility] Neurology [address] [phone] Noah Olguin MD 11/17/2024 Orders Only [facility] [address] [place] [phone] Noah Olguin MD Cervical dystonia (Primary Dx); Contracture of sternocleidomastoid muscle from Last 3 Months Social History Tobacco Use Types Packs/Day Years [...] on file Sexual Orientation Not on file Last Filed Vital Signs Vital Sign Reading Time Taken Comments Blood Pressure 114/84 09/06/2024 10:19 AM CDT Pulse 58 09/06/2024 10:15 AM CDT Temperature 36.3 C (97.4 F) 09/06/2024 10:19 AM CDT Respiratory Rate 18 09/06/2024 10:19 AM CDT Oxygen Saturation 98% 09/06/2024 10:19 AM CDT Inhaled Oxygen Concentration - - Weight - - Height - - Body Mass Index - - Plan of Treatment Upcoming Encounters Date Type Department Care Team (Late st Contact Info) Description 04/08/2025 12:00 PM KETTLE COORDINATOR Office Visit [facility] [address] [place] [phone] Noah Olguin MD [address] [place] [address] [address] [place] [address] Health Maintenance Due Date Last Done Comments ADVANCE CARE PLANNING 1980 ANNUAL REVIEW OF HM ORDERS 1980 DIABETES SCREENING 1980 MAMMO SCREENING 1980 YEARLY PREVENTIVE VISIT 12/08/1983 HIV SCREENING 12/08/1995 HEPATITIS C SCREENING 1998 HEPATITIS B VACCINE (2 of 3 - 19+ 3-dose series) 03/18/2017 02/18/2017 LIPID 2020 PAP 11/25/2022 11/26/2019 COVID-19 VACCINE ( season) 2024 01/26/2024, 03/17/2023, 02/14/2022, Additional history exists INFLUENZA VACCINE (#1) 2024 , 03/17/2023, 03/17/2023, Additional history exists DTAP/TDAP/TD VACCINE (4 - Td or Tdap) 11/14/2027 11/13/2017, 08/07/2015, 02/02/2009, Additional history exists ZOSTER VACCINE (1 of 2) 2030 PHQ-2 (once per calendar year) Completed 09/24/2024, 11/05/2023 HPV VACCINE (No Doses Required) Completed MENINGITIS VACCINE Aged Out No longer eligible based on patient's age to complete this topic PNEUMOCOCCAL VACCINE: PEDIATRICS (0 to 5 YEARS) AND AT-RISK PATIENTS (6 to 49 YEARS) Aged Out No longer eligible based on patient's age to complete this topic Insurance BCBS OUT OF STATE [facility] OUT OF STATE Care Teams Independent Driver Relationship Specialty Start Date End Date Evie Brooks MD [address] [address] PCP - General Family Medicine 10/17/23 Noah Olguin MD [address] [address] Neurology 10/17/23 Evie Brooks MD [address] [address] Family Medicine 10/17/23 Joseluis Nagel MD [address] [place] [address] 10/17/23 Noah Olguin MD [address] [address] Assigned Neuroscience Provider 11/28/23
[2025-01-25 19:31] VITALS: BP 130/81; PULSE 69; RESP 16; TEMP 36.3; O2SAT 99; BMI 31.1
--- NOTE | 2025-01-25 22:00 | ED_ITS ---
HPI - General Adult General Chief complaint: Unspecified Complaint, Adult Stated complaint: Hands turning purple Time Seen by Provider: 01/25/25 22:00 History of Present Illness HPI narrative: Pt has reported nausea, lighted headedness, vertigo over past three days . Pt thought this was a regular flare up. The discoloration of hands started around 3 pm. Pt reporting complaint of pain to upper right arm. Pt states tips of fingers feel numb on right hand. No report of headache does report heaving breathing this afternoon. pt is concerned about blood clots. pt spoke to her neurologist at [facility], they recommended she be seen for a possible DVT. Dr. Olguin [phone] was on the phone with the pt during triage. Dr. Olguin is worried about an arterial compression. 44-year-old woman presenting to the emergency department with concern of discoloration in her hands. Does have a history of neurogenic thoracic outlet syndrome with release on the right side. She had been experiencing some catching in her breath, described as double breathing of sorts, this afternoon which does not sound like is entirely new. Is not short of breath at this time. Has for a long time experienced blanching of her right hand with elevation as well as some numbness at that time. Today though around 3:00 p.m. noted marked discoloration of both hands over the palms and fingers bilaterally; right though more than left. Tingling into her finger tips or numbness as well on the right hand in particular. This has admittedly lessened a little bit now. Had reached out to her surgeon and then in contact with her primary neurologist as noted above and recommended to present to be evaluated for arterial compression possible DVTs. Did have some pain into the back of the right arm as well which has lessened. She has had persistent swelling at the right supraclavicular area more so than the left for sometime for which she takes Lasix. She does have ?flares? this sort of thoracic outlet syndrome where her right ear (as gestures) in particular will get hot and flushed in her face. Can also experience headaches and nausea and dizziness. Experiencing headache and nausea currently. Had been experiencing TMJ like pain she gestures to the right side. Does have a history of treatment with Botox, but again injections and acupuncture. For a long time can raise her right arm in particular over head noting marked pallor in the right hand after brief period of elevation. Related Data Home Medications ?Medication ?Instructions ?Recorded ?Confirmed multivitamin 1 tab PO QAM 05/03/22 Previous Rx's ?Medication ?Instructions ?Recorded minocycline 100 mg capsule 100 mg PO BID #60 caps 06/05 05/01 citalopram 10 mg tablet 10 mg PO DAILY #90 tabs 09/06 citalopram 20 mg tablet 20 mg PO DAILY #90 tabs 09/06 triamcinolone acetonide 0.1 % 1 applic topical BID #15 grams 09/24/24 topical cream gabapentin 300 mg capsule 300 mg PO QHS #90 caps 10/13 Allergies Allergy/AdvReac Type Severity Reaction Status Date / Time lactose Allergy Intermediate Abdominal Verified 09/24/24 09:06 Pain Review of Systems Status of ROS: Reports: 6 or more systems reviewed and unremarkable except as noted in History and below PFSH FOR[facility]LY [facility], [facility] Medical History Dermatitis ?L30.9 - Dermatitis, unspecified (ICD-10) 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 - Guttate psoriasis (ICD-10) Perioral dermatitis ?L71.0 - Perioral dermatitis (ICD-10) History of herpes genitalis ?Z86.19 - Personal history of other infectious and parasitic diseases (ICD- 10) Chronic cough ?R05.3 - Chronic cough (ICD-10) Surgical History Cervical dystonia (03/2024) ?G24.3 - Spasmodic torticollis (ICD-10) Status post laparoscopic hysterectomy (12/21/19) ?Z90.710 - Acquired absence of both cervix and uterus (ICD-10) History of vaginal delivery History of third molar tooth extraction ?K08.409 - Partial loss of teeth, unspecified cause, unspecified class (ICD- 10) History of resection of rib (06/2021) ?Z98.890 - Other specified postprocedural states (ICD-10) Family History Aunt Breast cancer Myocardial infarction Stroke Diabetes Sister Trisomy 18 syndrome Other Cerebral palsy Cystic fibrosis Down syndrome Lung cancer Pancreatic cancer Schizophrenia Social History (Updated 09/24/24 @ 09:35 by Evie Brooks MD) Narrative: , owns wedding business, 3 kids Non smoker rarely consumes alcohol walks dog 1-2 miles 3-5/ week What is your current living situation?: I presently have a place to live Problems where you live: no known problems In the past 12 months, utilities in danger of being shut off: no In past 12 months, lack of transportation kept you from medical appts, meetings, work, or getting things needed for daily living: no In the past 12 mos, have been you worried that your food would run out before you had money to buy more?: never true In the past 12 mos, the food you bought just didn't last and you didn't have money to buy more?: never true Smoking Status: Former smoker Do you use any of these nicotine containing products: None How often do you have a drink containing alcohol: never AUDIT-C Alcohol total score: 0 Non-prescribed substance use: denies use How often does anyone, including family, friends and others, physically hurt you : never How often does anyone, including family, friends and others, insult or talk down to you: rarely How often does anyone, including family, friends and others, threaten you with harm: never How often does anyone, including family, friends and others, scream or curse at you: never Health Related Social Needs: Other personal risk factors, not elsewhere cla ssified (Z91.89) Exam Narrative: Exam Narrative: Pleasant. Good energy. Breathing easily. Lungs appear clear. There is soft swelling in the right supraclavicular area without inflammatory changes in the area postoperative scar. Mild swelling in the left as well. She has strong radial pulses bilaterally. Hands are warm bilaterally cool in little bit to the finger tips. There is clear bluing of bilateral palms right greater than left and then into the fingers circumferentially more distally. Does not appear to rub off. Heart in regular rate and rhythm without murmur rub or gallop. Subjective tingly or numb in the fingertips right greater than left. Cranial nerves 2-12 are intact. She is moving all extremities without difficulty. There is no edema distally. Const: Vital Signs, click to edit/add: Vital Signs - 24 hr 01/25/25 19:31 01/25/25 23:57 Temperature 97.3 F L 97.5 F L Pulse Rate [Left P ulse Oximeter] 69 65 Respiratory Rate 16 17 Blood Pressure [Ri ght Upper Arm] 130/81 110/79 Pulse Oximetry 99 97 Oxygen Delivery Me thod Room Air Room Air Documenting provider has reviewed patient's vital signs: yes Course Vital Signs Vital signs: Initial Vital Signs Temperature 97.3 F L 01/25/25 19:31 Temperature Source Temporal Artery Scan 01/25/25 19:31 Pulse Rate 69 01/25/25 19:31 Pulse Rhythm Regular 01/25/25 19:31 Respiratory Rate 16 01/25/25 19:31 Blood Pressure 130/81 01/25/25 19:31 Blood Pressure Mean 97 01/25/25 19:31 Blood Pressure Position Sitting 01/25/25 19:31 Pulse Oximetry 99 01/25/25 19:31 Oxygen Delivery Method Room Air 01/25/25 19:31 Vital Signs Temperature 97.3 F L 01/25/25 19:31 Pulse Rate 69 01/25/25 19:31 Respiratory Rate 16 01/25/25 19:31 Blood Pressure 130/81 01/25/25 19:31 Pulse Oximetry 99 01/25/25 19:31 Oxygen Delivery Method Room Air 01/25/25 19:31 Temperature 97.5 F L 01/25/25 23:57 Pulse Rate 65 01/25/25 23:57 Respiratory Rate 17 01/25/25 23:57 Blood Pressure 110/79 01/25/25 23:57 Pulse Oximetry 97 01/25/25 23:57 Oxygen Delivery Method Room Air 01/25/25 23:57 Medications Administered Medications: Discontinued Medications Generic Name Dose Route Start Last Admin Trade Name Freq PRN Reason Stop Dose Admin Sodium Chloride 500 mls @ 1,000 mls/hr 01/25/25 23:11 01/25/25 23:55 0.9 % Sodium Chloride 500 Ml IV 01/25/25 23:40 Infused .Q30M ONE Infusion Medical Decision Making MDM Narrative Medical decision making narrative: Dorothy had already been in communication with her neurologist. I did spend some time discussing with Dr. Olguin. Has concerns of arterial compression. I think less likely thrombus. I do not think that there is a DVT here; furthermore Dr. Olguin will be arranging for more extensive venous studies, including the internal jugular I believe; more than we would do here. I wonder if this discoloration is more neurogenic in nature. Will be placing IV and arranging for this CTA study here as requested. Communicating abnormal results to Dr. Olguin. If normal it sounds as though Dr. Olguin would be pursuing evaluation of the lymphatic system as well. Dorothy does have some pictures of this discoloration. I would note that this is not as remarkable as what I saw on physical exam and on re-evaluation the blue I initially saw has faded noticeably. INDICATION: Right upper arm pain with numbness and tingling and right hand discoloration. Nausea and vertigo. TECHNIQUE: CT PE was acquired with 95 cc Isovue 370 IV contrast. Multiplanar reformats performed including 3D MIP reconstructions. COMPARISON: None. FINDINGS: Heart and vasculature: No pulmonary embolism appreciated. Main pulmonary artery normal in caliber. No thoracic aortic aneurysm. There are coronary artery calcifications. No cardiomegaly or pericardial effusion. Bilateral subclavian arteries are widely patent. Right upper extremity vasculature patent through the level of the axillary artery with limited evaluation distally. Lungs and pleura: Bibasilar atelectasis. No focal consolidation. No pleural effusion or pneumothorax. Patent central airways. Lymph nodes/mediastinum: No suspicious lymphadenopathy. Chest wall: No suspicious chest wall mass or fluid collection. No axillary lymphadenopathy. Thoracic outlet grossly maintained without evidence of proximal extrinsic vascular compression of the right upper extremity. Upper abdomen: No acute or significant findings. Bones: Postoperative changes of right 1st rib partial resection. No regional fluid collection or suspicious soft tissue mass identified. IMPRESSION: 1. Right upper extremity vasculature patent through the level of the right axillary artery with limited evaluation distally and no convincing CT evidence of extrinsic vascular compression. 2. No pulmonary embolism. 3. No acute intrathoracic pathology. 4. Mild coronary artery calcifications. Please note that all CT scans at this facility use dose modulation, iterative reconstruction, and/or weight-based dosing when appropriate to reduce radiation dose to as low as reasonably achievable. Dictated by Levar Yarbrough MD @ 01/26/2025 12:01:45 AM CTA chest stressing upper chest vasculature is requested looks to be unremarkable. Images will be sent to [facility]. Dorothy was given a copy of radiology over-read. Vitally well otherwise. See patient discharge plan for further discussion We are sending these images up to [facility]. Please call to schedule your ultrasounds tomorrow at phone number [phone]. I believe these are to be done stat or urgent per Dr. Olguin's order. Recommendations are to schedule this to be done at the [facility] at [address] [place] [address] Dr. Olguin would like for you to get a few more pictures of the discoloration per haps when more extreme so she can see them in follow-up. Be seen sooner/return for marked blanching associated with increased pain in the extremities or significant swelling. Medical Records Medical records reviewed: Yes I reviewed the patient's medical records Discharge Plan Discharge Clinical Impression: Discoloration of skin of hand, Neurogenic thoracic outlet syndrome, Paresthesia of hand, bilateral Patient Disposition: Home, Self-Care Condition: Improved Additional Instructions: We are sending these images up to [facility]. Please call to schedule your ultrasounds tomorrow at phone number [phone]. I believe these are to be done stat or urgent per Dr. Olguin's order. Recommendations are to schedule this to be done at the [facility] at [address] [place] [address] Dr. Olguin would like for you to get a few more pictures of the discoloration perhaps when more extreme so she can see them in follow-up. Be seen sooner/return for marked blanching associated with increased pain in the extremities or significant swelling. Prescriptions: No Action multivitamin Tablet 1 tab PO QAM citalopram 20 mg tablet 20 mg PO DAILY Qty: 90 3RF Rx Instructions: Take one 20mg tablet with one 10mg tablet to equal a 30mg daily dose of medication. citalopram 10 mg tablet 10 mg PO DAILY Qty: 90 3RF Rx Instructions: Take one 10mg tablet with one 20mg tablet to equal a 30mg daily dose of medication. triamcinolone acetonide 0.1 % cream 1 applic topical BID Qty: 15 0RF Rx Instructions: twice a day on eczema spot x 2weeks minocycline 100 mg capsule 100 mg PO BID Qty: 60 3RF gabapentin 300 mg capsule 300 mg PO QHS Qty: 90 3RF Follow Up/Referrals: Evie Brooks MD [Primary Care Provider, Family Practice] Stand Alone Forms: [facility] Info Instructions
--- NOTE | 2025-01-25 22:28 | CRLHL7_ITS ---
For Patients: As a result of the Century Cures Act, medical imaging exams and procedure reports are released immediately into your electronic medical record. You may view this report before your referring provider. If you have questions, please contact your health care provider. INDICATION: Right upper arm pain with numbness and tingling and right hand discoloration. Nausea and vertigo. TECHNIQUE: CT PE was acquired with 95 cc Isovue 370 IV contrast. Multiplanar reformats performed including 3D MIP reconstructions. COMPARISON: None. FINDINGS: Heart and vasculature: No pulmonary embolism appreciated. Main pulmonary artery normal in caliber. No thoracic aortic aneurysm. There are coronary artery calcifications. No cardiomegaly or pericardial effusion. Bilateral subclavian arteries are widely patent. Right upper extremity vasculature patent through the level of the axillary artery with limited evaluation distally. Lungs and pleura: Bibasilar atelectasis. No focal consolidation. No pleural effusion or pneumothorax. Patent central airways. Lymph nodes/mediastinum: No suspicious lymphadenopathy. Chest wall: No suspicious chest wall mass or fluid collection. No axillary lymphadenopathy. Thoracic outlet grossly maintained without evidence of proximal extrinsic vascular compression of the right upper extremity. Upper abdomen: No acute or significant findings. Bones: Postoperative changes of right 1st rib partial resection. No regional fluid collection or suspicious soft tissue mass identified. IMPRESSION: 1. Right upper extremity vasculature patent through the level of the right axillary artery with limited evaluation distally and no convincing CT evidence of extrinsic vascular compression. 2. No pulmonary embolism. 3. No acute intrathoracic pathology. 4. Mild coronary artery calcifications. Please note that all CT scans at this facility use dose modulation, iterative reconstruction, and/or weight-based dosing when appropriate to reduce radiation dose to as low as reasonably achievable. Dictated by Levar Yarbrough MD @ 01/26/2025 12:01:45 AM (Electronically Signed)
[2025-01-25] MEDS: 0.9 % SODIUM CHLORIDE 500 ML 500 ML 1000 ML IV (23:20)
[2025-01-25 23:57] VITALS: BP 110/79; PULSE 65; RESP 17; TEMP 36.4; O2SAT 97
== END 2025-01-26 01:02 | disposition home or self-care (01) ==
PROVIDERS: Emergency Provider Family Medicine; PCP Family Medicine
DX: R23.8 Other skin changes (principal); R20.2 Paresthesia of skin; G54.0 Brachial plexus disorders
CPT/HCPCS: 71275; 96360; 96374; 99284; J7030; Q9967